=== PATIENT | male | born 1945 | race Caucasian/White ===

== ENCOUNTER 2021-07-28 09:56 | Outpatient (CLI) | payer MEDICARE, SELFPAY ==
[2021-07-28 10:20] VITALS: BP 122/64; PULSE 80; RESP 16; TEMP 36.4; O2SAT 96
[2021-07-28 11:30] VITALS: BP 127/64; PULSE 76; RESP 16; TEMP 36.7; O2SAT 96
== END 2021-07-28 09:57 | disposition home or self-care (01) ==
LOC: INF 09:56
PROVIDERS: PCP Internal Medicine; Visit Provider Family Medicine
DX: U07.1 COVID-19 (principal)
CPT/HCPCS: 96374; Q0222

== ENCOUNTER 2022-04-01 18:11 | Outpatient (REF) | payer MEDICARE, OTHER, SELFPAY ==
--- NOTE | 2022-04-01 15:25 | SKI_PTH ---
PATIENT: Pankaj Gutierrez LOC: [facility] U#:[id number] AGE/SX: 76/M ROOM: RE04/01/[address]: Samuel Arias MD : 1945 BED: DIS: 04/01/2022 SPEC #: [id number] RECD: 04/01/22 18:23 STATUS: NEHEMIAH REQ #: [id number] JANIS: 04/01/22 15:[address]: Samuel Arias DEPT: Surgical Specimen RECD BY: Rufina Jain ENTERED: 04/01/22 18:24 SP TYPE: SKI OTHR DR: Emely Lowry Tissues: 1 - SKIN BIOPSY(SHAVE/PUNCH) Procedures: SKIN LEVEL 4 Comments: [id number]
== END 2022-04-01 18:12 | disposition home or self-care (01) ==
LOC: LBN 18:11
PROVIDERS: PCP Internal Medicine; Visit Provider Otolaryngology
DX: C44.321 Squamous cell carcinoma of skin of nose (principal); L57.0 Actinic keratosis
CPT/HCPCS: 88305

== ENCOUNTER 2023-01-09 11:37 | Outpatient (REF) | payer MEDICARE, OTHER, SELFPAY ==
--- NOTE | 2023-01-09 09:30 | PAPNONF_PTH ---
PATIENT: Pankaj Gutierrez LOC: [facility]#:[id number] AGE/SX: 77/M ROOM: RE01/09/[address]: Samuel Arias MD : 1945 BED: DIS: 01/09/2023 SPEC #: [id number] RECD: 01/09/23 14:03 STATUS: NEHEMIAH REQ #: [id number] JANIS: 01/09/23 09:[address]: Samuel Arias DEPT: [facility] Cytology RECD BY: Rufina Jain ENTERED: 01/09/23 14:04 SP TYPE: PAPNONF SERA DR: Emely Lowry Tissues: 1 - BODY FLUID CYTO-FINE NEEDLE [facility]ATE[facility] Procedures: BODY FLUID CYTO-FINE NEEDLE ASPIRATE-[facility] Comments: [id number] (REFRIGERATED)
== END 2023-01-09 11:38 | disposition home or self-care (01) ==
LOC: LBN 11:37
PROVIDERS: PCP Internal Medicine; Visit Provider Otolaryngology
DX: R22.1 Localized swelling, mass and lump, neck (principal); Z87.891 Personal history of nicotine dependence
CPT/HCPCS: 88104